=== PATIENT | female | born 1955 | race African-American/Black ===

== ENCOUNTER 2018-07-04 15:27 | Emergency (ER) | payer BC ==
[~2018-07-04] VITALS: Ht 160 cm; Wt 74.8 kg
[2018-07-04 16:00] LABS: ABSOLUTE NEUTROPHILS 4.3 thou/uL (1.4-8.2); BASOPHILS 0.7 % (0.0-2.0); EOSINOPHILS 0.6 % (0.0-3.0); HEMATOCRIT 39.5 % (37.0-47.0); HEMOGLOBIN 13.5 gm/dL (12.0-15.0); LYMPHOCYTES 30.7 % (24.0-44.0); MCH 32.9 pg (26.0-34.0); MCHC 34.2 g/dL (28.0-37.0); MCV 96.4 fL (80.0-100.0); MONOCYTES 10.4 % (1.0-8.0); PLATELET COUNT 228 thou/uL (150-400); POLYS 57.6 % (36.0-66.0); RDW 13.6 % (10.5-14.5); WBC 7.5 thou/uL (4.0-11.0)
[2018-07-04 16:00] LABS: URINE BILIRUBIN NEGATIVE (Negative); URINE BLOOD NEGATIVE (Negative); URINE CLARITY CLEAR; URINE COLOR YELLOW; URINE GLUCOSE-RANDOM* NEGATIVE (Negative); URINE KETONES NEGATIVE (Negative); URINE LEUKOCYTES-REFLEX NEGATIVE (Negative); URINE NITRITE-REFLEX NEGATIVE (Negative); URINE PROTEIN (DIPSTICK) NEGATIVE (Negative); URINE SPECIFIC GRAVITY 1.025 (1.005-1.035); URINE UROBILINOGEN 0.2 E.U./dl (0.2-1.0)
[2018-07-04] MEDS ORDERED: MAXZIDE-25 MG1 EACH PO (16:05)
[2018-07-04] MEDS ORDERED: NEXIUM40 MG PO (16:05)
[2018-07-04] MEDS ORDERED: NEURONTIN 300300 M1 PO (16:06)
[2018-07-04] MEDS ORDERED: NAPROSYN500 MG PO (16:06)
[2018-07-04] MEDS ORDERED: NORCO 5-325 TA1 EACH PO ×2 (16:06→17:49)
[2018-07-04] MEDS ORDERED: LISINOPRIL10 MG PO (16:06)
[2018-07-04 16:07] LABS: CALCIUM 9.3 mg/dL (8.5-10.1); CREATININE 1.5 mg/dL (0.6-1.0); POTASSIUM 4.1 mmol/L (3.5-5.1)
[2018-07-04 16:13] LABS: ALBUMIN 4.3 g/dL (3.4-5.0); TOTAL BILIRUBIN 0.5 mg/dL (<0.1-1.0); TOTAL PROTEIN 8.1 g/dL (6.4-8.2)
[2018-07-04 17:45] VITALS: BP 127/79
[2018-07-04] MEDS ORDERED: ZOFRAN ODT4 MG PO (17:49)
== END 2018-07-04 17:45 | disposition home or self-care (01) ==
LOC: ER 15:27
PROVIDERS: Emergency Medicine
DX: R10.32 Left lower quadrant pain (principal); R10.84 Generalized abdominal pain; R11.0 Nausea; R19.7 Diarrhea, unspecified; I10 Essential (primary) hypertension; E78.00 Pure hypercholesterolemia, unspecified; E78.5 Hyperlipidemia, unspecified; M06.9 Rheumatoid arthritis, unspecified; Z88.0 Allergy status to penicillin; Z90.711 Acquired absence of uterus with remaining cervical stump; Z88.2 Allergy status to sulfonamides; Z88.8 Allergy status to other drugs, medicaments and biological substances

== ENCOUNTER 2020-02-13 10:54 | Emergency (ER) | payer BC ==
[~2020-02-13] VITALS: Ht 157.5 cm; Wt 72.6 kg
[~2020-02-13 10:54] MED LIST: LISINOPRIL10 MG PO; MAXZIDE-25 MG1 EACH PO; NAPROSYN500 MG PO; NEURONTIN 300300 M1 PO; NEXIUM40 MG PO; NORCO 5-325 TA1 EACH PO; ZOFRAN ODT4 MG PO
[2020-02-13 15:38] LABS: ABSOLUTE NEUTROPHILS 2.7 thou/uL (1.4-8.2); BASOPHILS 0.5 % (0.0-2.0); EOSINOPHILS 0.6 % (0.0-3.0); HEMATOCRIT 37.6 % (37.0-47.0); HEMOGLOBIN 12.7 gm/dL (12.0-15.0); MCH 32.5 pg (26.0-34.0); MCHC 33.9 g/dL (28.0-37.0); MCV 95.8 fL (80.0-100.0); MONOCYTES 11.8 % (1.0-8.0); PLATELET COUNT 209 thou/uL (150-400); POLYS 63.1 % (36.0-66.0); RBC 3.92 mil/uL (4.20-5.00); RDW 12.7 % (10.5-14.5); WBC 4.3 thou/uL (4.0-11.0)
[2020-02-13 15:45] LABS: ANION GAP 8 mmol/L (7-16); BUN 12 mg/dL (7-18); CALCIUM 9.5 mg/dL (8.5-10.1); CHLORIDE 101 mmol/L (98-107); CO2 25 mmol/L (21-32); CREATININE 1.1 mg/dL (0.6-1.0); GLUCOSE 98 mg/dL (74-106); POTASSIUM 4.3 mmol/L (3.5-5.1); SODIUM 134 mmol/L (136-145)
[2020-02-13 15:54] LABS: TROPONIN-I <0.06 ng/mL (<0.06)
[2020-02-13 16:55] VITALS: BP 140/59
--- NOTE | 2020-02-14 07:22 | EKG ---
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 02/14/[address] [facility] Alexandre Galicia MD, FACC /EPI
== END 2020-02-13 16:55 | disposition home or self-care (01) ==
LOC: ER 10:54
PROVIDERS: Physician Assistant
DX: R10.32 Left lower quadrant pain (principal); R07.9 Chest pain, unspecified; I10 Essential (primary) hypertension; E78.5 Hyperlipidemia, unspecified; Z90.710 Acquired absence of both cervix and uterus; Z79.899 Other long term (current) drug therapy; Z88.0 Allergy status to penicillin; Z88.2 Allergy status to sulfonamides; Z88.8 Allergy status to other drugs, medicaments and biological substances

== ENCOUNTER 2020-06-09 10:39 | Emergency (ER) | payer BC ==
[~2020-06-09] VITALS: Ht 162.6 cm; Wt 77.6 kg
[2020-06-09 10:45] VITALS: BP 127/71
[2020-06-09 11:17] LABS: URINE BILIRUBIN NEGATIVE (Negative); URINE BLOOD NEGATIVE (Negative); URINE CLARITY CLEAR; URINE COLOR YELLOW; URINE GLUCOSE-RANDOM* NEGATIVE (Negative); URINE KETONES NEGATIVE (Negative); URINE LEUKOCYTES-REFLEX TRACE (Negative); URINE NITRITE-REFLEX NEGATIVE (Negative); URINE PROTEIN (DIPSTICK) NEGATIVE (Negative); URINE SPECIFIC GRAVITY <= 1.005 (1.005-1.035); URINE UROBILINOGEN 0.2 E.U./dl (0.2-1.0)
[2020-06-09 11:30] LABS: MCH 32.7 pg (26.0-34.0); WBC 4.3 thou/uL (4.0-11.0)
[2020-06-09 11:32] LABS: ABSOLUTE NEUTROPHILS 2.4 thou/uL (1.4-8.2); BASOPHILS 0.7 % (0.0-2.0); EOSINOPHILS 1.1 % (0.0-3.0); HEMOGLOBIN 11.9 gm/dL (12.0-15.0); LYMPHOCYTES 27.6 % (24.0-44.0); MCHC 34.1 g/dL (28.0-37.0); MCV 95.9 fL (80.0-100.0); MONOCYTES 15.2 % (1.0-8.0); PLATELET COUNT 211 thou/uL (150-400); POLYS 55.4 % (36.0-66.0); RBC 3.65 mil/uL (4.20-5.00); RDW 12.9 % (10.5-14.5)
[2020-06-09 11:38] LABS: CALCIUM 8.8 mg/dL (8.5-10.1); CREATININE 1.3 mg/dL (0.6-1.0); POTASSIUM 4.3 mmol/L (3.5-5.1)
[2020-06-09 11:44] LABS: ALBUMIN 3.7 g/dL (3.4-5.0); TOTAL BILIRUBIN 0.6 mg/dL (0.2-1.0); TOTAL PROTEIN 7.3 g/dL (6.4-8.2)
--- NOTE | 2020-06-10 06:59 | EKG ---
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 : 1955 Requested By: Alexandre Rodríguez Order Number: [id number] MD: Alexandre Galicia Measurements Intervals [place] Rate: 59 P: 60 IN: 223 QRS: 10 QRSD: 97 T: 29 QT: 426 QTc: 422 Interpretive Statements Sinus rhythm Prolonged IN interval Compared to ECG 02/13/2020 11:00:17 First degree AV block now present Electronically Signed On 06-10-2020 6:59:10 CDT by Alexandre Galicia [email or web address] <ELECTRONICALLY SIGNED> By: [facility] Galicia MD, [facility] 06/10/20 0659 [id number] 1247 Alexandre Galicia MD, FACC /EPI
== END 2020-06-09 13:54 | disposition home or self-care (01) ==
LOC: ER 10:39
PROVIDERS: Emergency Medicine
DX: R10.12 Left upper quadrant pain (principal); R10.32 Left lower quadrant pain; I10 Essential (primary) hypertension; E78.5 Hyperlipidemia, unspecified; Z90.710 Acquired absence of both cervix and uterus; Z88.0 Allergy status to penicillin; Z88.2 Allergy status to sulfonamides; Z88.8 Allergy status to other drugs, medicaments and biological substances